=== PATIENT | female | born 1935 | race Caucasian/White ===

== ENCOUNTER 2017-01-27 16:15 | Inpatient (IN) | payer MEDICARE, OTHER ==
[~2017-01-27] VITALS: Ht 162.6 cm; Wt 111.7 kg
[2017-01-27 16:15] VITALS: BP 157/87
--- NOTE | 2017-01-27 16:59 | Emergency Room Report ---
History of Present Illness General Chief Complaint: Dyspnea/Respdistress Source: Patient Present Illness HPI This patient presents with shortness of breath for the past day and has. The patient does have a history of arrhythmia and congestive heart failure. The patient related to her care at [facility]. The patient states she did call her primary care physician number she was unable to get into the clinic today. She denies fever or chills. She denies cough or congestion. She denies chest pain. She denies abdominal pain. She denies dysuria or hematuria. She has no other complaints. Allergies: Coded Allergies: No Known Allergies (Verified , 04/05/10) UNABLE TO ASSESS (Unverified , 01/27/17) Patient History Past Medical History: see triage record, DM, HTN, IA, CAD, CHF, AFib, arrhyth, GERD Past Surgical History: pacemaker Social History: Denies: alcohol use, drug use, smoking Reviewed Nursing Documentation: PMH: Agreed, PSxH: Agreed Nursing Documentation-PMH Hx Hypertension: Yes Hx Diabetes: Yes Review of Systems All Other Systems: negative except mentioned in HPI Physical Exam Vital Signs Date Time Temp Pulse Resp B/P Pulse Ox O2 Delivery O2 Flow Rate FiO2 01/27/17 16:09 85 18 151/93 100 Nasal Cannula 3.0 Sp02 EP Interpretation: reviewed, normal General Appearance: no apparent distress, alert, GCS 15, non-toxic Head: normocephalic, atraumatic Eyes: bilateral eye PERRL, bilateral eye normal inspection ENT: hearing grossly normal, normal pharynx, no angioedema, normal voice Neck: full range of motion, supple/symm/no masses Respiratory: chest non-tender, lungs clear, normal breath sounds, speaking full sentences Cardiovascular #1: regular rate, rhythm, no edema Gastrointestinal: normal bowel sounds, non tender, soft, non-distended, no guarding, no rebound Rectal: deferred Musculoskeletal: back normal, gait/station normal, normal range of motion, non- tender, swelling - BLE Neurologic: alert, oriented x3, responsive, motor strength/tone normal, sensory intact, speech normal Psychiatric: judgement/insight normal, memory normal, mood/affect normal, no suicidal/homicidal ideation Skin: normal color, no rash, warm/dry, well hydrated Medical Decision Making Diagnostic Impression: Primary Impression: CHF exacerbation ER Course This patient presents with CHF exacerbation. She is a known history of CHF. Chest x-ray shows findings consistent with interstitial edema. The patient was given Lasix IV and nitro paste was placed on her chest wall. She did remain stable here in the emergency department on 2 L of nasal cannula. She was admitted for further evaluation and treatment. Labs Test 01/27/17 16:25 White Blood Count 5.6 K/UL (4.8-10.8) Red Blood Count 3.43 M/UL (4.20-5.40) Hemoglobin 10.5 G/DL (12.0-16.0) Hematocrit 34.2 % (37.0-47.0) Mean Corpuscular Volume 100 FL (80-99) Mean Corpuscular Hemoglobin 30.5 PG (27.0-31.0) Mean Corpuscular Hemoglobin Concent 30.6 G/DL (32.0-36.0) Red Cell Distribution Width 17.1 % (11.6-14.8) Platelet Count 199 K/UL (150-450) Mean Platelet Volume 10.1 FL (6.5-10.1) Neutrophils (%) (Auto) 70.6 % (45.0-75.0) Lymphocytes (%) (Auto) 20.0 % (20.0-45.0) Monocytes (%) (Auto) 6.6 % (1.0-10.0) Eosinophils (%) (Auto) 1.5 % (0.0-3.0) Basophils (%) (Auto) 1.3 % (0.0-2.0) Prothrombin Time 12.1 SEC (9.30-11.50) Prothromb Time International Ratio 1.2 (0.9-1.1) Activated Partial Thromboplast Time 43 SEC (23-33) Sodium Level 142 mEQ/L (135-145) Potassium Level 4.5 mEQ/L (3.4-4.9) Chloride Level 101 mEQ/L (98-107) Carbon Dioxide Level 29 mEQ/L (20-30) Anion Gap 12 (5-15) Blood Urea Nitrogen 28 mg/dL (7-23) Creatinine 1.5 mg/dL (0.5-0.9) Estimat Glomerular Filtration Rate mL/min (>60) Glucose Level 69 mg/dL (74-106) Calcium Level 9.8 mg/dL (8.6-10.2) Total Bilirubin 0.9 mg/dL (0.0-1.2) Aspartate Amino Transf (AST/SGOT) 16 U/L (5-40) Alanine Aminotransferase (ALT/SGPT) 7 U/L (3-33) Alkaline Phosphatase 96 U/L (35-104) Total Creatine Kinase 50 U/L (26-140) Creatine Kinase MB 1.8 ng/mL (< 3.8) Creatine Kinase MB Relative Index 3.6 Troponin I < 0.30 ng/mL (<=0.30) Pro-B-Type Natriuretic Peptide 4101 pg/mL (0-450) Total Protein 6.9 g/dL (6.6-8.7) Albumin 3.6 g/dL (3.5-5.2) Globulin 3.3 g/dL Albumin/Globulin Ratio 1.0 (1.0-2.7) EKG Diagnostic Results Rate: normal Rhythm: other ST Segments: no acute changes Other Impression a.fib Rhythm Strip Diag. Results EP Interpretation: yes Rate: 80's Rhythm: other Other Impression A.fib w/ some paced beats Chest X-Ray Diagnostic Results Chest X-Ray Ordered: Yes # of Views/Limited/Complete: 1 View Interpretation: no consolidation, no pneumothorax, other Indication: Shortness of Breath Impression: Other - Cardiomegaly, interstitial congestion. Date Electronically Signed: Jan 27, 2017 Time Electronically Signed: 16:59 Interpreting ER Physician: Amairani Last Vital Signs Date Time Temp Pulse Resp B/P Pulse Ox O2 Delivery O2 Flow Rate FiO2 01/27/17 16:15 85 18 Room Air 01/27/17 16:09 151/93 100 3.0 Disposition: ADMITTED INPATIENT Condition: Serious Referrals: NOT CHOSEN IPA/,REFERRING (PCP) LISA SWEENEY D.O. Jan 27, 2017 16:59
[2017-01-27] MEDS ORDERED: Nitroglycerin 2% oint pkt TOPIC ONE (17:00)
[2017-01-27 17:01] LABS: BASOPHILS % (AUTO) 1.3 % (0.0-2.0); EOSINOPHILS % (AUTO) 1.5 % (0.0-3.0); MEAN CORPUSCULAR HEMOGLOBIN 30.5 PG (27.0-31.0); MEAN CORPUSCULAR HGB CONC 30.6 G/DL (32.0-36.0); MEAN CORPUSCULAR VOLUME 100 FL (80-99); MEAN PLATELET VOLUME 10.1 FL (6.5-10.1); MONOCYTES % (AUTO) 6.6 % (1.0-10.0); NEUTROPHILS % (AUTO) 70.6 % (45.0-75.0); PLATELET COUNT 199 K/UL (150-450); RED BLOOD COUNT 3.43 M/UL (4.20-5.40); RED CELL DISTRIBUTION WIDTH 17.1 % (11.6-14.8); WHITE BLOOD COUNT 5.6 K/UL (4.8-10.8)
[2017-01-27 17:07] LABS: INR 1.2 (0.9-1.1); PROTHROMBIN TIME 12.1 SEC (9.30-11.50)
[2017-01-27 17:08] LABS: ALANINE AMINOTRANSFERASE 7 U/L (3-33); ANION GAP 12 (5-15); ASPARTATE AMINO TRANSFERASE 16 U/L (5-40); CALCIUM 9.8 mg/dL (8.6-10.2); CARBON DIOXIDE 29 mEQ/L (20-30); CHLORIDE 101 mEQ/L (98-107); CREATININE 1.5 mg/dL (0.5-0.9); HEMOLYSIS 12; POTASSIUM 4.5 mEQ/L (3.4-4.9); SODIUM 142 mEQ/L (135-145); TOTAL PROTEIN 6.9 g/dL (6.6-8.7); TROPONIN I < 0.30 ng/mL (<=0.30)
[2017-01-27 17:19] LABS: CKMB 1.8 ng/mL (< 3.8)
[2017-01-27] MEDS ORDERED: PRADAXA150 MG ORAL (17:19)
[2017-01-27] MEDS ORDERED: LANTUS SOL100 UNIT/1 SUBQ (17:19)
[2017-01-27] MEDS ORDERED: AMIODARONE HCL400 M1 ORAL (17:19)
[2017-01-27] MEDS ORDERED: ROCATROL0.25 MCG PO (17:19)
[2017-01-27] MEDS ORDERED: HYDRALAZINE HCL25 M1 ORAL (17:19)
[2017-01-27] MEDS ORDERED: NEXIUM40 MG ORAL (17:19)
[2017-01-27] MEDS ORDERED: VITAMIN D400 INTLU ORAL (17:19)
[2017-01-27] MEDS ORDERED: ALLOPURINOL300 M1 ORAL (17:19)
[2017-01-27] MEDS ORDERED: FUROSEMIDE40 MG ORAL (17:19)
[2017-01-27] MEDS ORDERED: NOVOLOG100 UNITS1 SQ ×3 (17:59)
[2017-01-27 18:00] VITALS: BP_SYST 157; BP_SYST 173; BP_DIAS 76; BP_DIAS 87
[2017-01-27 18:21] LABS: APPEARANCE,URINE CLEAR; KETONES,URINE NEGATIVE (NEGATIVE); LEUKOCYTE ESTERASE ,URINE 1+ (NEGATIVE); NITRITE,URINE NEGATIVE (NEGATIVE); PH,URINE 7 (4.5-8.0); PROTEIN,URINE NEGATIVE (NEGATIVE); UROBILINOGEN,URINE NORMAL MG/DL (0.0-1.0)
[2017-01-27 18:26] LABS: BACTERIA,URINE FEW /HPF; RBC,URINE 0-2 /HPF (0 - 2); SQUAMOUS EPITHELIAL CELL,UR FEW /LPF (NONE/OCC)
[2017-01-27] MEDS ORDERED: DuoNeb 0.5-3(2.5)mg/3ml neb HHN PRN (18:45)
[2017-01-27] MEDS ORDERED: Miralax 17gm pkt ORAL PRN (18:45)
[2017-01-27 20:06] VITALS: BP 141/84
[2017-01-27] MEDS: NovoLOG Insulin Flexpen SUBQ SCH (21:00)
[2017-01-27] MEDS ORDERED: Heparin 5000 units/ml inj SUBQ SCH (21:00)
[2017-01-27] MEDS: HydrALAZINE 25mg tab ORAL SCH (21:35)
[2017-01-27] MEDS: Amiodarone 200mg tab ORAL SCH (21:35)
[2017-01-27] MEDS: Famotidine 20 MG/ 2ML VIAL IVP SCH (21:49)
[2017-01-28] VITALS: BP 129/56
[2017-01-28 03:44] VITALS: BP 126/69
[2017-01-28] MEDS: NovoLOG Insulin Flexpen SUBQ SCH ×4 (06:04→21:08)
[2017-01-28 06:07] LABS: BASOPHILS % (AUTO) 1.5 % (0.0-2.0); EOSINOPHILS % (AUTO) 2.1 % (0.0-3.0); LYMPHOCYTES % (AUTO) 16.9 % (20.0-45.0); MEAN CORPUSCULAR HEMOGLOBIN 29.6 PG (27.0-31.0); MEAN CORPUSCULAR HGB CONC 30.1 G/DL (32.0-36.0); MEAN CORPUSCULAR VOLUME 98 FL (80-99); MEAN PLATELET VOLUME 9.9 FL (6.5-10.1); MONOCYTES % (AUTO) 9.5 % (1.0-10.0); PLATELET COUNT 192 K/UL (150-450); RED CELL DISTRIBUTION WIDTH 16.2 % (11.6-14.8); WHITE BLOOD COUNT 4.3 K/UL (4.8-10.8)
[2017-01-28 06:32] LABS: TROPONIN I < 0.30 ng/mL (<=0.30)
[2017-01-28 06:58] LABS: ANION GAP 15 (5-15); CALCIUM 9.2 mg/dL (8.6-10.2); CARBON DIOXIDE 24 mEQ/L (20-30); CHLORIDE 103 mEQ/L (98-107); CREATININE 1.5 mg/dL (0.5-0.9); HEMOLYSIS 55; PHOSPHORUS 3.7 mg/dL (2.5-4.8); POTASSIUM 4.2 mEQ/L (3.4-4.9); SODIUM 142 mEQ/L (135-145)
[2017-01-28 08:22] VITALS: BP 118/55
--- NOTE | 2017-01-28 08:39 | Diagnostic Imaging Report ---
Indication: SOB Technique: One view of the chest Comparison: none Findings: There is a left chest bifocal pacemaker. There are old healed right rib fracture deformities and underlying pleural thickening. The heart is enlarged. There is blunting of the right costophrenic sulcus. There is mild central interstitial prominence Impression: Cardiomegaly Mild central interstitial prominence. Suspect on the basis of chronic senescent changes, but could indicate mild interstitial congestion Cannot rule out small right pleural effusion Pacemaker
[2017-01-28] MEDS: HydrALAZINE 25mg tab ORAL SCH ×3 (09:16→21:03)
[2017-01-28] MEDS: Amiodarone 200mg tab ORAL SCH (09:17)
--- NOTE | 2017-01-28 10:34 | Diagnostic Imaging Report ---
Indications: DYSPNEA Technique: Portable AP chest Findings: Comparison: 01/27/2017 Inspiratory effort has improved. Size of the cardiac silhouette has apparently decreased. Focal opacities in right lung base have decreased. Mild bilateral interstitial prominence persists. Blunting of right costophrenic angle persists. No new abnormality identified. IMPRESSION: Apparent increase in heart size may be technically related and/or represent resolving heart failure. Some residual findings persist. Decrease in right lung base opacity most compatible with improving atelectasis. Underlying focal pneumonia still not excludable. Stable right pleural effusion
[2017-01-28] MEDS: Calcitriol 0.25mcg Cap ORAL SCH (10:45)
[2017-01-28 11:29] VITALS: BP 118/60
--- NOTE | 2017-01-28 13:16 | History and Physical ---
History of Present Illness General Date patient seen: Jan 28, 2017 Reason for Hospitalization: Dyspnea/Respdistress Present Illness HPI 81 year old female with hx of CHF, pacemaker, DM, wheelchair bound presented with shortness of breath for the past day and has orthopnea and can't lay down flat. She denies fever or chills. She denies cough or congestion. She denies chest pain. She denies abdominal pain. She denies dysuria or hematuria. Her cxr showed pulmonary edema and cardiomegaly and she is admitted to telemetry for further evaluation. . Allergies: Coded Allergies: No Known Allergies (Verified , 04/05/10) UNABLE TO ASSESS (Unverified , 01/27/17) Medication History Scheduled Allopurinol* (Allopurinol*), 300 MG ORAL DAILY, (Reported) Amiodarone Hcl* (Amiodarone Hcl*), 200 MG ORAL EVERY 12 HOURS, (Reported) Calcitriol (Calcitriol), 0.25 MCG PO DAILY, (Reported) Dabigatran Etexilate Mesylate* (Pradaxa*), 75 MG ORAL DAILY, (Reported) Esomeprazole Magnesium (Nexium), 40 MG ORAL DAILY, (Reported) Furosemide* (Lasix*), 40 MG ORAL TWICE A DAY, (Reported) Hydralazine Hcl* (Hydralazine Hcl*), 25 MG ORAL BID, (Reported) Insulin Aspart (Novolog Flexpen), 12 SQ ACBREAKFAST, (Reported) Insulin Aspart (Novolog Flexpen), 8 SQ BEFORE LUNCH, (Reported) Insulin Aspart (Novolog Flexpen), 12 SQ BEDTIME, (Reported) Insulin Glargine (Lantus), 18 SUBQ BEDTIME, (Reported) Vitamin D (Vitamin D3), 400 UNITS ORAL BID, (Reported) Patient History Healthcare decision maker Resuscitation status Full Code Advanced Directive on File Past Medical/Surgical History Past Medical/Surgical History: (1) Pacemaker (2) Cardiomyopathy (3) HTN (hypertension) (4) Diabetes mellitus (5) Wheelchair bound Review of Systems Constitutional: Reports: malaise Respiratory: Reports: shortness of breath Physical Exam General Appearance: WD/WN, no apparent distress Lines, tubes and drains: peripheral HEENT: normocephalic Neck: non-tender, supple Respiratory/Chest: chest wall non-tender, normal breath sounds Cardiovascular/Chest: normal peripheral pulses Abdomen: normal bowel sounds, non tender Extremities: normal range of motion, non-tender Last 24 Hour Vital Signs Date Time Temp Pulse Resp B/P Pulse Ox O2 Delivery O2 Flow Rate FiO2 01/28/17 12:00 88 01/28/17 11:29 97.0 73 18 118/60 99 Nasal Cannula 3.0 01/28/17 09:16 118/55 01/28/17 08:43 81 01/28/17 08:22 97.3 81 18 118/55 98 Nasal Cannula 3.0 01/28/17 07:40 107 18 Room Air 01/28/17 04:00 73 01/28/17 03:44 98.2 73 19 126/69 98 Nasal Cannula 3.0 01/28/17 00:00 72 01/28/17 00:00 97.8 79 19 129/56 99 Nasal Cannula 3.0 01/27/17 21:35 141/84 01/27/17 20:06 97.7 99 18 141/84 98 Nasal Cannula 01/27/17 19:30 79 22 173/76 100 Nasal Cannula 2.0 01/27/17 18:00 79 22 173/76 100 Nasal Cannula 2.0 01/27/17 17:15 151/63 01/27/17 16:15 84 20 157/87 95 Room Air 01/27/17 16:15 85 18 Room Air 01/27/17 16:09 85 18 151/93 100 Nasal Cannula 3.0 Intake and Output 01/27/17 01/28/17 19:00 07:00 Intake Total 0 ml Output Total 4250 ml Balance 0 ml -4250 ml Intake Oral 0 ml Output Urine Total 4250 ml Laboratory Tests Test 01/27/17 16:25 01/27/17 17:25 01/28/17 05:45 White Blood Count 5.6 K/UL (4.8-10.8) 4.3 K/UL (4.8-10.8) L Red Blood Count 3.43 M/UL (4.20-5.40) L 3.40 M/UL (4.20-5.40) L Hemoglobin 10.5 G/DL (12.0-16.0) L 10.1 G/DL (12.0-16.0) L Hematocrit 34.2 % (37.0-47.0) L 33.4 % (37.0-47.0) L Mean Corpuscular Volume 100 FL (80-99) H 98 FL (80-99) Mean Corpuscular Hemoglobin 30.5 PG (27.0-31.0) 29.6 PG (27.0-31.0) Mean Corpuscular Hemoglobin Concent 30.6 G/DL (32.0-36.0) L 30.1 G/DL (32.0-36.0) L Red Cell Distribution Width 17.1 % (11.6-14.8) H 16.2 % (11.6-14.8) H Platelet Count 199 K/UL (150-450) 192 K/UL (150-450) Mean Platelet Volume 10.1 FL (6.5-10.1) 9.9 FL (6.5-10.1) Neutrophils (%) (Auto) 70.6 % (45.0-75.0) 70.0 % (45.0-75.0) Lymphocytes (%) (Auto) 20.0 % (20.0-45.0) 16.9 % (20.0-45.0) L Monocytes (%) (Auto) 6.6 % (1.0-10.0) 9.5 % (1.0-10.0) Eosinophils (%) (Auto) 1.5 % (0.0-3.0) 2.1 % (0.0-3.0) Basophils (%) (Auto) 1.3 % (0.0-2.0) 1.5 % (0.0-2.0) Prothrombin Time 12.1 SEC (9.30-11.50) H Prothromb Time International Ratio 1.2 (0.9-1.1) H Activated Partial Thromboplast Time 43 SEC (23-33) H Sodium Level 142 mEQ/L (135-145) 142 mEQ/L (135-145) Potassium Level 4.5 mEQ/L (3.4-4.9) 4.2 mEQ/L (3.4-4.9) Chloride Level 101 mEQ/L (98-107) 103 mEQ/L (98-107) Carbon Dioxide Level 29 mEQ/L (20-30) 24 mEQ/L (20-30) Anion Gap 12 (5-15) 15 (5-15) Blood Urea Nitrogen 28 mg/dL (7-23) H 29 mg/dL (7-23) H Creatinine 1.5 mg/dL (0.5-0.9) H 1.5 mg/dL (0.5-0.9) H Estimat Glomerular Filtration Rate mL/min (>60) mL/min (>60) Glucose Level 69 mg/dL (74-106) L 94 mg/dL (74-106) Calcium Level 9.8 mg/dL (8.6-10.2) 9.2 mg/dL (8.6-10.2) Total Bilirubin 0.9 mg/dL (0.0-1.2) Aspartate Amino Transf (AST/SGOT) 16 U/L (5-40) Alanine Aminotransferase (ALT/SGPT) 7 U/L (3-33) Alkaline Phosphatase 96 U/L (35-104) Total Creatine Kinase 50 U/L (26-140) Creatine Kinase MB 1.8 ng/mL (< 3.8) Creatine Kinase MB Relative Index 3.6 Troponin I < 0.30 ng/mL (<=0.30) < 0.30 ng/mL (<=0.30) Pro-B-Type Natriuretic Peptide 4101 pg/mL (0-450) H Total Protein 6.9 g/dL (6.6-8.7) Albumin 3.6 g/dL (3.5-5.2) 2.8 g/dL (3.5-5.2) L Globulin 3.3 g/dL Albumin/Globulin Ratio 1.0 (1.0-2.7) Urine Color Pale yellow Urine Appearance Clear Urine pH 7 (4.5-8.0) Urine Specific [place] 1.005 (1.005-1.035) Urine Protein Negative (NEGATIVE) Urine Glucose (UA) Negative (NEGATIVE) Urine Ketones Negative (NEGATIVE) Urine Occult Blood Negative (NEGATIVE) Urine Nitrite Negative (NEGATIVE) Urine Bilirubin Negative (NEGATIVE) Urine Urobilinogen Normal MG/DL (0.0-1.0) Urine Leukocyte Esterase 1+ (NEGATIVE) H Urine RBC 0-2 /HPF (0 - 2) Urine WBC 2-4 /HPF (0 - 2) Urine Squamous Epithelial Cells Few /LPF (NONE/OCC) Urine Bacteria Few /HPF (NONE) Phosphorus Level 3.7 mg/dL (2.5-4.8) Height (Feet): 5 Height (Inches): 4.00 Weight (Pounds): 258 Medications Current Medications Medications (Trade) Dose Ordered Sig/Payal Route PRN Reason Start Time Stop Time Status Last Admin Dose Admin Acetaminophen (Tylenol) 650 mg Q4H PRN ORAL Fever 01/27/17 18:45 02/26/17 18:44 Albuterol/ Ipratropium (DuoNeb 0.5-3(2.5)mg/3ml) 3 ml EVERY 4 HOURS PRN HHN Shortness of Breath 01/27/17 18:45 02/01/17 18:44 Allopurinol (Allopurinol) 300 mg DAILY ORAL 01/28/17 09:00 02/27/17 08:59 01/28/17 09:16 Amiodarone HCl (Cordarone) 200 mg EVERY 12 HOURS ORAL 01/27/17 21:00 02/26/17 20:59 01/28/17 09:17 Calcitriol (Rocatrol) 0.25 mcg DAILY ORAL 01/28/17 09:00 02/27/17 08:59 01/28/17 10:45 Dabigatran (Pradaxa) 75 mg EVERY 12 HOURS ORAL 01/27/17 21:00 02/26/17 20:59 01/28/17 09:17 Dextrose (Dextrose 50%) STAT PRN IV Hypoglycemia 01/27/17 18:45 02/26/17 18:44 Famotidine (Pepcid I.v.) 20 mg QHS IVP 01/27/17 21:00 02/26/17 20:59 01/27/17 21:49 Furosemide (Lasix) 40 mg EVERY 8 HOURS IV 01/27/17 22:00 02/26/17 21:59 01/28/17 06:02 Hydralazine HCl (Apresoline) 25 mg Q12HR ORAL 01/27/17 21:00 02/26/17 20:59 01/28/17 09:16 Insulin Aspart (NovoLOG) BEFORE MEALS AND HS SUBQ 01/27/17 21:00 02/26/17 20:59 01/28/17 11:36 Ondansetron HCl (Zofran) 4 mg Q6H PRN IVP Nausea & Vomiting 01/27/17 18:45 02/26/17 18:44 Polyethylene Glycol (Miralax) 17 gm DAILYPRN PRN ORAL Constipation 01/27/17 18:45 02/26/17 18:44 Temazepam (Restoril) 15 mg HSPRN PRN ORAL Insomnia 01/27/17 18:45 02/03/17 18:44 Assessment/Plan Problem List: (1) Acute respiratory failure ICD Codes: J96.00 - Acute respiratory failure, unspecified whether with hypoxia or hypercapnia SNOMED: 41974649 (2) Acute on chronic systolic (congestive) heart failure ICD Codes: I50.23 - Acute on chronic systolic (congestive) heart failure SNOMED: 53925414, 173457732 (3) Pacemaker ICD Codes: Z95.0 - Presence of cardiac pacemaker SNOMED: 171180182, 044686787 (4) HTN (hypertension) ICD Codes: I10 - Essential (primary) hypertension SNOMED: 97404057 (5) Cardiomyopathy ICD Codes: I42.9 - Cardiomyopathy, unspecified SNOMED: 35272987 (6) Diabetes mellitus ICD Codes: E11.9 - Type 2 diabetes mellitus without complications SNOMED: 20158862 (7) Wheelchair bound ICD Codes: Z99.3 - Dependence on wheelchair SNOMED: 379313504, 305463256 Assessment/Plan diuretics echo measure intake and output check electrolytes, BNP sliding scale, diabetic diet dvt prophylaxis pt/ot CHIAN GREENE Jan 28, 2017 13:16
[2017-01-28 13:45] LABS: BASOPHILS % (AUTO) 1.2 % (0.0-2.0); EOSINOPHILS % (AUTO) 1.8 % (0.0-3.0); LYMPHOCYTES % (AUTO) 17.9 % (20.0-45.0); MEAN CORPUSCULAR HEMOGLOBIN 29.2 PG (27.0-31.0); MEAN CORPUSCULAR HGB CONC 29.8 G/DL (32.0-36.0); MEAN CORPUSCULAR VOLUME 98 FL (80-99); MEAN PLATELET VOLUME 11.2 FL (6.5-10.1); MONOCYTES % (AUTO) 7.8 % (1.0-10.0); NEUTROPHILS % (AUTO) 71.3 % (45.0-75.0); PLATELET COUNT 212 K/UL (150-450); RED BLOOD COUNT 3.46 M/UL (4.20-5.40); RED CELL DISTRIBUTION WIDTH 16.7 % (11.6-14.8); WHITE BLOOD COUNT 4.9 K/UL (4.8-10.8)
[2017-01-28 15:38] VITALS: BP 123/71
--- NOTE | 2017-01-28 15:54 | Cardiology Progress Note ---
Assessment/Plan Assessment/Plan chf acute on chronci systolic icm cad remote pci htn cri nonoclusive dvt poplteal vein mr tr p htn hs of ppi obesity anticoagualtion with heparin to coaumdin prodaxa may have been underdosed need echo dirutic hydralazien adn nitrates diuretic bid switch ot po soon [id number] Objective Last 24 Hour Vital Signs Date Time Temp Pulse Resp B/P Pulse Ox O2 Delivery O2 Flow Rate FiO2 01/28/17 15:38 97.9 73 20 123/71 99 Nasal Cannula 3.0 01/28/17 12:00 88 01/28/17 11:29 97.0 73 18 118/60 99 Nasal Cannula 3.0 01/28/17 09:16 118/55 01/28/17 08:43 81 01/28/17 08:22 97.3 81 18 118/55 98 Nasal Cannula 3.0 01/28/17 07:40 107 18 Room Air 01/28/17 04:00 73 01/28/17 03:44 98.2 73 19 126/69 98 Nasal Cannula 3.0 01/28/17 00:00 72 01/28/17 00:00 97.8 79 19 129/56 99 Nasal Cannula 3.0 01/27/17 21:35 141/84 01/27/17 20:06 97.7 99 18 141/84 98 Nasal Cannula 01/27/17 19:30 79 22 173/76 100 Nasal Cannula 2.0 01/27/17 18:00 79 22 173/76 100 Nasal Cannula 2.0 01/27/17 17:15 151/63 01/27/17 16:15 84 20 157/87 95 Room Air 01/27/17 16:15 85 18 Room Air 01/27/17 16:09 85 18 151/93 100 Nasal Cannula 3.0 Intake and Output 01/27/17 01/28/17 19:00 07:00 Intake Total 0 ml Output Total 4250 ml Balance 0 ml -4250 ml Intake Oral 0 ml Output Urine Total 4250 ml Laboratory Tests Test 01/27/17 16:25 01/27/17 17:25 01/28/17 05:45 01/28/17 13:35 White Blood Count 5.6 K/UL (4.8-10.8) 4.3 K/UL (4.8-10.8) L 4.9 K/UL (4.8-10.8) Red Blood Count 3.43 M/UL (4.20-5.40) L 3.40 M/UL (4.20-5.40) L 3.46 M/UL (4.20-5.40) L Hemoglobin 10.5 G/DL (12.0-16.0) L 10.1 G/DL (12.0-16.0) L 10.1 G/DL (12.0-16.0) L Hematocrit 34.2 % (37.0-47.0) L 33.4 % (37.0-47.0) L 33.9 % (37.0-47.0) L Mean Corpuscular Volume 100 FL (80-99) H 98 FL (80-99) 98 FL (80-99) Mean Corpuscular Hemoglobin 30.5 PG (27.0-31.0) 29.6 PG (27.0-31.0) 29.2 PG (27.0-31.0) Mean Corpuscular Hemoglobin Concent 30.6 G/DL (32.0-36.0) L 30.1 G/DL (32.0-36.0) L 29.8 G/DL (32.0-36.0) L Red Cell Distribution Width 17.1 % (11.6-14.8) H 16.2 % (11.6-14.8) H 16.7 % (11.6-14.8) H Platelet Count 199 K/UL (150-450) 192 K/UL (150-450) 212 K/UL (150-450) Mean Platelet Volume 10.1 FL (6.5-10.1) 9.9 FL (6.5-10.1) 11.2 FL (6.5-10.1) H Neutrophils (%) (Auto) 70.6 % (45.0-75.0) 70.0 % (45.0-75.0) 71.3 % (45.0-75.0) Lymphocytes (%) (Auto) 20.0 % (20.0-45.0) 16.9 % (20.0-45.0) L 17.9 % (20.0-45.0) L Monocytes (%) (Auto) 6.6 % (1.0-10.0) 9.5 % (1.0-10.0) 7.8 % (1.0-10.0) Eosinophils (%) (Auto) 1.5 % (0.0-3.0) 2.1 % (0.0-3.0) 1.8 % (0.0-3.0) Basophils (%) (Auto) 1.3 % (0.0-2.0) 1.5 % (0.0-2.0) 1.2 % (0.0-2.0) Prothrombin Time 12.1 SEC (9.30-11.50) H Prothromb Time International Ratio 1.2 (0.9-1.1) H Activated Partial Thromboplast Time 43 SEC (23-33) H 49 SEC (23-33) H Sodium Level 142 mEQ/L (135-145) 142 mEQ/L (135-145) Potassium Level 4.5 mEQ/L (3.4-4.9) 4.2 mEQ/L (3.4-4.9) Chloride Level 101 mEQ/L (98-107) 103 mEQ/L (98-107) Carbon Dioxide Level 29 mEQ/L (20-30) 24 mEQ/L (20-30) Anion Gap 12 (5-15) 15 (5-15) Blood Urea Nitrogen 28 mg/dL (7-23) H 29 mg/dL (7-23) H Creatinine 1.5 mg/dL (0.5-0.9) H 1.5 mg/dL (0.5-0.9) H Estimat Glomerular Filtration Rate mL/min (>60) mL/min (>60) Glucose Level 69 mg/dL (74-106) L 94 mg/dL (74-106) Calcium Level 9.8 mg/dL (8.6-10.2) 9.2 mg/dL (8.6-10.2) Total Bilirubin 0.9 mg/dL (0.0-1.2) Aspartate Amino Transf (AST/SGOT) 16 U/L (5-40) Alanine Aminotransferase (ALT/SGPT) 7 U/L (3-33) Alkaline Phosphatase 96 U/L (35-104) Total Creatine Kinase 50 U/L (26-140) Creatine Kinase MB 1.8 ng/mL (< 3.8) Creatine Kinase MB Relative Index 3.6 Troponin I < 0.30 ng/mL (<=0.30) < 0.30 ng/mL (<=0.30) Pro-B-Type Natriuretic Peptide 4101 pg/mL (0-450) H Total Protein 6.9 g/dL (6.6-8.7) Albumin 3.6 g/dL (3.5-5.2) 2.8 g/dL (3.5-5.2) L Globulin 3.3 g/dL Albumin/Globulin Ratio 1.0 (1.0-2.7) Urine Color Pale yellow Urine Appearance Clear Urine pH 7 (4.5-8.0) Urine Specific [place] 1.005 (1.005-1.035) Urine Protein Negative (NEGATIVE) Urine Glucose (UA) Negative (NEGATIVE) Urine Ketones Negative (NEGATIVE) Urine Occult Blood Negative (NEGATIVE) Urine Nitrite Negative (NEGATIVE) Urine Bilirubin Negative (NEGATIVE) Urine Urobilinogen Normal MG/DL (0.0-1.0) Urine Leukocyte Esterase 1+ (NEGATIVE) H Urine RBC 0-2 /HPF (0 - 2) Urine WBC 2-4 /HPF (0 - 2) Urine Squamous Epithelial Cells Few /LPF (NONE/OCC) Urine Bacteria Few /HPF (NONE) Phosphorus Level 3.7 mg/dL (2.5-4.8) PEDRO COOPER Jan 28, 2017 15:54
[2017-01-28] MEDS: Docusate 100mg cap ORAL SCH (17:55)
[2017-01-28] MEDS: Lactulose 20gm/30ml UDC ORAL SCH (17:55)
--- NOTE | 2017-01-28 17:57 | Cardiology Report ---
APPROVED REPORT EXAM: Two-dimensional and M-mode echocardiogram with Doppler and color Doppler. INDICATION Left Ventricular Function M-Mode DIMENSIONS IVSd1.6 (0.7-1.1cm)Left Atrium (MM)5.2 (1.6-4.0cm) LVDd5.3 (3.5-5.6cm)Aortic Root3.2 (2.0-3.7cm) PWd1.1 (0.7-1.1cm)Aortic Cusp Exc.2.0 (1.5-2.0cm) LVDs3.8 (2.5-4.0cm) PWs1.7 cm Normal left ventricular chamber size. HYPOKINETIC DISTAL SEPTUM MAYBE RELATED TO PACING Asynchronous septal motion. Left ventricular ejection fraction estimated to be 45-50 %. Mild left ventricular hypertrophy. No evidence of pericardial fat or effusion. Mild right ventricular enlargement by. Moderate right atrial enlargement. Severe left atrial enlargement by 2-D. Mild focal aortic valve sclerosis with adequate cusp excursion. Mildly thickened mitral valve leaflets with normal excursion. Mild mitral annulus and aortic root calcification. Pulmonic valve not well visualized. Normal tricuspid valve structure. IVC dilated at 2.1 cm with physiologic collapse. A color flow and spectral Doppler study was performed and revealed: No aortic regurgitation. Mild mitral regurgitation. Left ventricular diastolic function could not be determined due to A-Fib. Mild to moderate tricuspid regurgitation. Tricuspid systolic velocities suggests peak right ventricular systolic pressure of 51 mmHg, consistent with moderate pulmonary hypertension. No pulmonic regurgitation present.
[2017-01-28 20:00] VITALS: BP 113/60
[2017-01-28] MEDS ORDERED: Heparin 25,000u/D5W 500ml 500 ML IV SCH (21:00)
[2017-01-28] MEDS: Miralax 17gm pkt ORAL SCH (21:00)
[2017-01-28] MEDS: Famotidine 20 MG/ 2ML VIAL IVP SCH (21:08)
--- NOTE | 2017-01-28 21:14 | Wound Care Consultation ---
Wound Assessment Wound Assessment : Wound Present on Admission: Yes New Wound: No Status Change of Wound: No Wound Location Body Site Modif: mid Wound Location Body Site: other - sacrococcyxgeal Wound Type: pressure ulcer Joel Test: Does not Joel Wound Thickness: Full Thickness - scar tissue Wound Length: 3.0 Wound Width: 0.3 Wound Depth: utd Percent of Wound [place]/Red: 100 Wound Drainage Amount: None Wound Drainage Odor: None/Absent Tissue Surrounding Wound: Intact Wound General Appearance: Asymptomatic Wound Comment #1 Sacrococcygeal full thickness scar tissue Recommendation -Turn and reposition -Keep clean and dry -Optimize nutrition -Heel protector on both heels -Offload both heels -Assess and f/u accordingly for any changes FEDERICA DENNIS RN Jan 28, 2017 21:14
[2017-01-29] VITALS: BP 122/53
--- NOTE | 2017-01-29 | Consultation ---
DATE OF CONSULTATION: 01/28/2017 CARDIOLOGY CONSULTATION REFERRING PHYSICIAN: Leslee Geiger M.D. REASON FOR EVALUATION: Shortness of breath. HISTORY OF PRESENT ILLNESS: This 81-year-old female, who has a history of medical problems . The patient presented to the hospital approximately two to three days of not being able to sleep at night at all because of shortness of breath. She uses several pillows at night and in the past few nights has not been able to sleep. She is not very active. She just gets up and sits up in a wheelchair, step into the bathroom and come back to bed again. So, activity is very nonstrenuous. She does not have any pain, pressure, tightness or heaviness in her chest. There is no palpitations recently and she has had some shortness of breath. There is no dizziness or lightheadedness on standing. PAST MEDICAL HISTORY: Extensive as follows at [facility]. I had a chance to review some of the [facility] records. She has a history of chronic congestive heart failure and diastolic heart failure, previously on Lasix 40 mg twice a day. He has been status post PCI to the LAD diagonal in June 2006 and sick sinus syndrome status post permanent pacemaker implantation, history of atrial fibrillation on Pradaxa, and hypertension. She is acute on chronic kidney disease, stage 3 or 4, and hypernatremia. She has had a history of umbilical hernia, anticoagulation-induced hematuria, urinary tract infection, diabetes mellitus, abdominal pain, and colonic mass as well. ALLERGIES: She has no known drug allergies. REVIEW OF SYSTEMS: Gastrointestinal: Negative. Genitourinary: Negative. Constitutional: Negative. Neurologic: Negative. Cardiopulmonary: As mentioned in history of present illness. PHYSICAL EXAMINATION: GENERAL: The patient is a morbidly obese elderly female, in no respiratory distress. She is feels already comfortable. There is no jugular venous distention. No abdominojugular reflux noted. LUNGS: Clear to auscultation and percussion. CARDIAC: S1 is normal. S2 is normal. Regular rate and rhythm. No heaves, thrills, gallops, or rubs noted. Holosystolic grade 2 murmur was noted. ABDOMEN: Soft and nontender. Positive bowel sounds. EXTREMITIES: There is no clubbing, cyanosis, or edema. LABORATORY AND DIAGNOSTIC DATA: White count 4.9, hemoglobin 10.1, and platelet count of 212,000. Sodium is 142, potassium 4.3, chloride 103, bicarbonate 24, BUN of 29 and creatinine 1.5. Her creatinine at the time of admission was 1.5. Three sets of cardiac enzymes are negative. Pro-BNP is 4011. Albumin is 2.8. INR is 1.2 and PTT of 43. is 49 today. Urinalysis is 1+ leukocyte esterase and 2-4 WBCs. Chest x-ray shows heart failure resolving, decreased, but opacity compatible with improving atelectasis, underlying pneumonia not excluded. Right pleural effusion stable. Duplex study shows that nonoccluded thrombus in the popliteal vein. Blood pressure is anywhere between 118/55 to 123/71, heart rates in the 70 to 80 and temperature is 97.3 degrees. EKG shows a atrial fibrillation, ventricular response is controlled. No is noted on this EKG. ASSESSMENT AND PLAN: 1. Congestive heart failure, acute on chronic. 2. History of permanent atrial fibrillation. 3. Sick sinus syndrome, status post permanent pacemaker implantation. 4. Coronary disease with prior history of a stent in 2005 and myocardial infarction in 2004. 5. History of left ventricular systolic dysfunction, ejection fraction 45% previously. 6. Mitral regurgitation and tricuspid regurgitation on prior occasions. 7. Pulmonary hypertension on prior occasions as well. 8. Dilated RV on prior occasions as well. 9. Nonocclusive deep venous thromboses. Dr. Geiger, this patient was seen in cardiac consultation. The patient has significant improvement in her symptoms already. She should be back on all her medications, however, she has indicated that she has been taking amiodarone twice a day, which she probably should not have been, I am not clear how long she has been on it. She has been on Pradaxa 75 mg once a day, this probably is not therapeutic for her degree of dysfunction. Her Lasix was supposed to be on 40 mg twice a day, but she is only taking it once a day. She is on hydralazine as well as she was supposed to be on Imdur, which she apparently has not taken at this time. Her ejection fraction previously was already at 45%. She has some valvular dysfunction that are contributing to her congestive heart failure that she is at the present time. Not clear to me whether she is going to be inadequate or a good candidate for chronic anticoagulation with Coumadin, although I suspect with the degree of thrombus that is present, Pradaxa may be not the best option in light of renal insufficiency fluctuating renal function at this time and should be considered for anticoagulation with heparin cross over. Patrick Brandt M.D. DR: SALOME JOB#: [id number] CC:
[2017-01-29 03:54] LABS: TROPONIN I < 0.30 ng/mL (<=0.30)
[2017-01-29 04:00] VITALS: BP 119/60
[2017-01-29] MEDS ORDERED: Heparin 25,000u/D5W 500ml 500 ML IV SCH ×4 (05:00→20:00)
[2017-01-29] MEDS ORDERED: Norco 5mg/325mg tab ORAL PRN (05:45)
[2017-01-29] MEDS: NovoLOG Insulin Flexpen SUBQ SCH ×4 (05:56→21:15)
[2017-01-29 07:54] VITALS: BP 127/52
[2017-01-29] MEDS: Lactulose 20gm/30ml UDC ORAL SCH ×3 (09:00→17:30)
[2017-01-29] MEDS: Docusate 100mg cap ORAL SCH ×3 (09:00→17:30)
[2017-01-29] MEDS: Amiodarone 200mg tab ORAL SCH (09:45)
[2017-01-29] MEDS: HydrALAZINE 25mg tab ORAL SCH ×2 (09:46→20:52)
[2017-01-29] MEDS: Calcitriol 0.25mcg Cap ORAL SCH (09:46)
[2017-01-29 11:31] VITALS: BP 120/57
--- NOTE | 2017-01-29 12:24 | Pulmonology Progress Note ---
Assessment/Plan Problems: (1) Acute respiratory failure (2) Acute on chronic systolic (congestive) heart failure (3) Pacemaker (4) HTN (hypertension) (5) Cardiomyopathy (6) Diabetes mellitus (7) Wheelchair bound (8) DVT (deep venous thrombosis) Assessment/Plan improving continue diuretics on heparin drip for dvt ( might switch to pradaxa upon discharge home) check electrolytes and bnp in am dc probably in am Subjective Interval Events: doing better, on heparin drip Allergies: Coded Allergies: No Known Allergies (Verified , 04/05/10) Objective Last 24 Hour Vital Signs Date Time Temp Pulse Resp B/P Pulse Ox O2 Delivery O2 Flow Rate FiO2 01/29/17 11:31 96.9 75 18 120/57 99 Nasal Cannula 3.0 01/29/17 09:47 127/52 01/29/17 09:46 127/52 01/29/17 08:00 71 01/29/17 07:54 96.8 77 18 127/52 98 Nasal Cannula 3.0 01/29/17 07:13 70 16 Nasal Cannula 3.0 32 01/29/17 07:13 98 Nasal Cannula 3.0 32 01/29/17 07:13 Nasal Cannula 3.0 32 01/29/17 04:00 97.7 77 20 119/60 99 Nasal Cannula 2.0 01/29/17 04:00 70 01/29/17 00:00 98.2 73 20 122/53 98 Nasal Cannula 01/29/17 00:00 74 01/29/17 00:00 98.2 73 20 122/53 99 Nasal Cannula 2.0 01/28/17 21:00 113/60 01/28/17 20:00 97.2 78 20 113/60 98 Room Air 01/28/17 20:00 81 01/28/17 19:30 82 18 Room Air 21 01/28/17 17:55 123/71 01/28/17 16:36 76 01/28/17 15:38 97.9 73 20 123/71 99 Nasal Cannula 3.0 Intake and Output 01/28/17 01/29/17 19:00 07:00 Intake Total 360 ml 252.90 ml Output Total 2300 ml 1100 ml Balance -1940 ml -847.10 ml Intake Oral 360 ml IV Total 252.90 ml Output Urine Total 2300 ml 1100 ml # Bowel Movements 1 General Appearance: WD/WN HEENT: normocephalic, atraumatic Respiratory/Chest: chest wall non-tender, lungs clear Breasts: no masses Cardiovascular: normal peripheral pulses, normal rate Abdomen: normal bowel sounds, soft, non tender Genitourinary: normal external genitalia 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, no motor/sensory deficits Lymphatic: no neck adenopathy, no groin adenopathy Laboratory Tests 01/28/17 13:35: White Blood Count 4.9, Red Blood Count 3.46L, Hemoglobin 10.1L, Hematocrit 33.9L , Mean Corpuscular Volume 98, Mean Corpuscular Hemoglobin 29.2, Mean Corpuscular Hemoglobin Concent 29.8L, Red Cell Distribution Width 16.7H, Platelet Count 212, Mean Platelet Volume 11.2H, Neutrophils (%) (Auto) 71.3, Lymphocytes (%) (Auto) 17.9L, Monocytes (%) (Auto) 7.8, Eosinophils (%) (Auto) 1.8, Basophils (%) (Auto) 1.2, Activated Partial Thromboplast Time 49H 01/29/17 02:50: Activated Partial Thromboplast Time > 150*H, Troponin I < 0.30, Thyroid Stimulating Hormone (TSH) 25.020H 01/29/17 10:50: Activated Partial Thromboplast Time 106H Current Medications Medications (Trade) Dose Ordered Sig/Payal Route PRN Reason Start Time Stop Time Status Last Admin Dose Admin Acetaminophen (Tylenol) 650 mg Q4H PRN ORAL Mild Pain/Temp > 100.5 01/29/17 02:45 02/28/17 02:44 01/29/17 02:27 Acetaminophen/ Hydrocodone Bitart 1 tab 1 tab Q4H PRN ORAL Moderate Pain (Pain Scale 4-6) 01/29/17 05:45 02/05/17 05:44 Albuterol/ Ipratropium (DuoNeb 0.5-3(2.5)mg/3ml) 3 ml EVERY 4 HOURS PRN HHN Shortness of Breath 01/27/17 18:45 02/01/17 18:44 Allopurinol (Allopurinol) 300 mg DAILY ORAL 01/28/17 09:00 02/27/17 08:59 01/29/17 09:44 Amiodarone HCl (Cordarone) 200 mg DAILY ORAL 01/29/17 09:00 02/28/17 08:59 01/29/17 09:45 Calcitriol (Rocatrol) 0.25 mcg DAILY ORAL 01/28/17 09:00 02/27/17 08:59 01/29/17 09:46 Dextrose (Dextrose 50%) STAT PRN IV Hypoglycemia 01/27/17 18:45 02/26/17 18:44 Docusate Sodium (Colace) 100 mg THREE TIMES A DAY ORAL 01/28/17 18:00 02/27/17 17:59 01/28/17 17:55 Famotidine (Pepcid I.v.) 20 mg QHS IVP 01/27/17 21:00 02/26/17 20:59 01/28/17 21:08 Furosemide (Lasix) 40 mg EVERY 8 HOURS IV 01/27/17 22:00 02/26/17 21:59 01/29/17 05:47 Heparin Sodium/ Dextrose (Heparin) 500 ml @ 24.349 mls/ hr adjust per protocol IV 01/29/17 12:20 02/28/17 12:19 Hydralazine HCl (Apresoline) 25 mg Q12HR ORAL 01/27/17 21:00 02/26/17 20:59 01/29/17 09:46 Insulin Aspart (NovoLOG) BEFORE MEALS AND HS SUBQ 01/27/17 21:00 02/26/17 20:59 01/29/17 11:37 Isosorbide Dinitrate (Isordil) 10 mg TID ORAL 01/28/17 18:00 02/27/17 17:59 01/29/17 09:47 Lactulose (Cephulac) 30 gm THREE TIMES A DAY ORAL 01/28/17 18:00 02/27/17 17:59 01/28/17 17:55 Mineral Oil (Fleet's Mineral Oil Enema) 133 ml EVERY OTHER DAY RECTAL 01/30/17 09:00 03/01/17 08:59 Ondansetron HCl (Zofran) 4 mg Q6H PRN IVP Nausea & Vomiting 01/27/17 18:45 02/26/17 18:44 Polyethylene Glycol (Miralax) 17 gm BEDTIME ORAL 01/28/17 21:00 02/27/17 20:59 Polyethylene Glycol (Miralax) 17 gm DAILYPRN PRN ORAL Constipation 01/27/17 18:45 02/26/17 18:44 Sennosides (Senokot) 8.6 mg DAILY ORAL 01/28/17 14:00 02/27/17 13:59 01/28/17 13:49 Temazepam (Restoril) 15 mg HSPRN PRN ORAL Insomnia 01/27/17 18:45 02/03/17 18:44 [place] GREENE Jan 29, 2017 12:24
[2017-01-29 16:08] VITALS: BP 107/49
--- NOTE | 2017-01-29 19:00 | Cardiology Progress Note ---
Assessment/Plan Assessment/Plan 1. Congestive heart failure, acute on chronic. 2. History of permanent atrial fibrillation. 3. Sick sinus syndrome, status post permanent pacemaker implantation. 4. Coronary disease with prior history of a stent in 2005 and myocardial infarction in 2004. 5. History of left ventricular systolic dysfunction, ejection fraction 45% previously. 6. Mitral regurgitation and tricuspid regurgitation on prior occasions. 7. Pulmonary hypertension on prior occasions as well. 8. Dilated RV on prior occasions as well. 9. Nonocclusive deep venous thromboses. anticoagulation with heparin nto lead to any bleeding family indicate she has previously had problem with coumadin prodaxa may have been underdosed will dc pradaxa will switch to eliquis echo noted diuretic hydralazine adn nitrates diuretic bid switch ot po tomorrow dc amaro before she has traumatic hematuria Subjective Cardiovascular: Denies: chest pain, irregular heart rate, lightheadedness, palpitations Respiratory: Denies: shortness of breath Genitourinary: Denies: burning, hematuria Objective Last 24 Hour Vital Signs Date Time Temp Pulse Resp B/P Pulse Ox O2 Delivery O2 Flow Rate FiO2 01/29/17 17:30 107/49 01/29/17 16:08 96.8 76 18 107/49 100 Nasal Cannula 3.0 01/29/17 16:00 79 01/29/17 13:36 120/57 01/29/17 12:00 71 01/29/17 11:31 96.9 75 18 120/57 99 Nasal Cannula 3.0 01/29/17 09:47 127/52 01/29/17 09:46 127/52 01/29/17 08:00 71 01/29/17 07:54 96.8 77 18 127/52 98 Nasal Cannula 3.0 01/29/17 07:13 70 16 Nasal Cannula 3.0 32 01/29/17 07:13 98 Nasal Cannula 3.0 32 01/29/17 07:13 Nasal Cannula 3.0 32 01/29/17 04:00 97.7 77 20 119/60 99 Nasal Cannula 2.0 01/29/17 04:00 70 01/29/17 00:00 98.2 73 20 122/53 98 Nasal Cannula 01/29/17 00:00 74 01/29/17 00:00 98.2 73 20 122/53 99 Nasal Cannula 2.0 01/28/17 21:00 113/60 01/28/17 20:00 97.2 78 20 113/60 98 Room Air 01/28/17 20:00 81 01/28/17 19:30 82 18 Room Air 21 General Appearance: no apparent distress, alert Neck: supple Cardiovascular: normal rate, regular rhythm Respiratory/Chest: lungs clear, normal breath sounds Abdomen: normal bowel sounds, non tender, soft Extremities: no swelling Intake and Output 01/28/17 01/29/17 19:00 07:00 Intake Total 360 ml 252.90 ml Output Total 2300 ml 1100 ml Balance -1940 ml -847.10 ml Intake Oral 360 ml IV Total 252.90 ml Output Urine Total 2300 ml 1100 ml # Bowel Movements 1 Laboratory Tests Test 01/29/17 02:50 01/29/17 10:50 01/29/17 18:34 Activated Partial Thromboplast Time > 150 SEC (23-33) *H 106 SEC (23-33) H Pending Troponin I < 0.30 ng/mL (<=0.30) Thyroid Stimulating Hormone (TSH) 25.020 uIU/mL (0.300-4.500) Free Thyroxine Pending Free Triiodothyronine Pending PEDRO COOPER 14, 2017 19:00
--- NOTE | 2017-01-29 19:06 | Cardiology Progress Note ---
Assessment/Plan Assessment/Plan 1. Congestive heart failure, acute on chronic. 2. History of permanent atrial fibrillation. 3. Sick sinus syndrome, status post permanent pacemaker implantation. 4. Coronary disease with prior history of a stent in 2005 and myocardial infarction in 2004. 5. History of left ventricular systolic dysfunction, ejection fraction 45% previously. 6. Mitral regurgitation and tricuspid regurgitation on prior occasions. 7. Pulmonary hypertension on prior occasions as well. 8. Dilated RV on prior occasions as well. 9. Nonocclusive deep venous thromboses. anticoagulation with heparin nto lead to any bleeding family indicate she has previously had problem with coumadin prodaxa may have been underdosed will dc pradaxa will switch to eliquis full dose for dvt treatmnet not just afib (10 mg bid for 7 day then 5 mg bid ) dc heparin as of tomorrow at 3 am to start eliquis at 9 echo noted diuretic hydralazine adn nitrates diuretic bid switch ot po tomorrow dc amaro before she has traumatic hematuria Objective Last 24 Hour Vital Signs Date Time Temp Pulse Resp B/P Pulse Ox O2 Delivery O2 Flow Rate FiO2 01/29/17 17:30 107/49 01/29/17 16:08 96.8 76 18 107/49 100 Nasal Cannula 3.0 01/29/17 16:00 79 01/29/17 13:36 120/57 01/29/17 12:00 71 01/29/17 11:31 96.9 75 18 120/57 99 Nasal Cannula 3.0 01/29/17 09:47 127/52 01/29/17 09:46 127/52 01/29/17 08:00 71 01/29/17 07:54 96.8 77 18 127/52 98 Nasal Cannula 3.0 01/29/17 07:13 70 16 Nasal Cannula 3.0 32 01/29/17 07:13 98 Nasal Cannula 3.0 32 01/29/17 07:13 Nasal Cannula 3.0 32 01/29/17 04:00 97.7 77 20 119/60 99 Nasal Cannula 2.0 01/29/17 04:00 70 01/29/17 00:00 98.2 73 20 122/53 98 Nasal Cannula 01/29/17 00:00 74 01/29/17 00:00 98.2 73 20 122/53 99 Nasal Cannula 2.0 01/28/17 21:00 113/60 01/28/17 20:00 97.2 78 20 113/60 98 Room Air 01/28/17 20:00 81 01/28/17 19:30 82 18 Room Air 21 Intake and Output 01/28/17 01/29/17 19:00 07:00 Intake Total 360 ml 252.90 ml Output Total 2300 ml 1100 ml Balance -1940 ml -847.10 ml Intake Oral 360 ml IV Total 252.90 ml Output Urine Total 2300 ml 1100 ml # Bowel Movements 1 Laboratory Tests Test 01/29/17 02:50 01/29/17 10:50 01/29/17 18:34 Activated Partial Thromboplast Time > 150 SEC (23-33) *H 106 SEC (23-33) H Pending Troponin I < 0.30 ng/mL (<=0.30) Thyroid Stimulating Hormone (TSH) 25.020 uIU/mL (0.300-4.500) Free Thyroxine Pending Free Triiodothyronine Pending PEDRO COOPER Jan 29, 2017 19:06
[2017-01-29 20:00] VITALS: BP 99/58
[2017-01-29] MEDS: Miralax 17gm pkt ORAL SCH (20:55)
[2017-01-29] MEDS: Furosemide 40mg tab ORAL SCH (21:05)
[2017-01-29] MEDS: Famotidine 20 MG/ 2ML VIAL IVP SCH (21:07)
[2017-01-30 04:00] VITALS: BP 123/60
[2017-01-30] MEDS: NovoLOG Insulin Flexpen SUBQ SCH ×4 (05:56→20:49)
[2017-01-30 08:02] LABS: BASOPHILS % (AUTO) 1.5 % (0.0-2.0); EOSINOPHILS % (AUTO) 2.7 % (0.0-3.0); LYMPHOCYTES % (AUTO) 24.1 % (20.0-45.0); MEAN CORPUSCULAR HEMOGLOBIN 30.7 PG (27.0-31.0); MEAN CORPUSCULAR HGB CONC 31.5 G/DL (32.0-36.0); MEAN CORPUSCULAR VOLUME 98 FL (80-99); MEAN PLATELET VOLUME 9.2 FL (6.5-10.1); MONOCYTES % (AUTO) 7.2 % (1.0-10.0); NEUTROPHILS % (AUTO) 64.6 % (45.0-75.0); PLATELET COUNT 182 K/UL (150-450); RED CELL DISTRIBUTION WIDTH 16.5 % (11.6-14.8); WHITE BLOOD COUNT 4.7 K/UL (4.8-10.8)
[2017-01-30 08:07] LABS: INR 1.1 (0.9-1.1); PROTHROMBIN TIME 11.7 SEC (9.30-11.50)
[2017-01-30 08:14] LABS: ALANINE AMINOTRANSFERASE 5 U/L (3-33); ANION GAP 12 (5-15); ASPARTATE AMINO TRANSFERASE 13 U/L (5-40); CALCIUM 8.9 mg/dL (8.6-10.2); CARBON DIOXIDE 32 mEQ/L (20-30); CHLORIDE 99 mEQ/L (98-107); CREATININE 1.9 mg/dL (0.5-0.9); LACTATE DEHYDROGENASE 244 U/L (135-230); POTASSIUM 3.4 mEQ/L (3.4-4.9); SODIUM 143 mEQ/L (135-145); TOTAL PROTEIN 6.1 g/dL (6.6-8.7)
[2017-01-30 08:43] LABS: HEMOLYSIS 3; IRON 52 ug/dL (37-145); TOTAL IRON BINDING CAPACITY 291 ug/dL (250-400)
[2017-01-30 08:55] VITALS: BP 118/62
[2017-01-30] MEDS ORDERED: Fleet's Mineral Oil Enema RECTAL SCH (09:00)
[2017-01-30] MEDS: Lactulose 20gm/30ml UDC ORAL SCH ×3 (09:00→17:12)
[2017-01-30] MEDS: Furosemide 40mg tab ORAL SCH ×2 (09:05→20:37)
[2017-01-30] MEDS: Amiodarone 200mg tab ORAL SCH (09:05)
[2017-01-30] MEDS: HydrALAZINE 25mg tab ORAL SCH ×2 (09:06→20:37)
[2017-01-30] MEDS: Calcitriol 0.25mcg Cap ORAL SCH (09:06)
[2017-01-30] MEDS: Docusate 100mg cap ORAL SCH ×3 (09:07→17:10)
[2017-01-30] MEDS: Eliquis 2.5mg tablet ORAL SCH ×2 (09:08→17:11)
[2017-01-30 09:51] LABS: ERYTHROCYTE SEDIMENTATION RATE 70 MM/HR (0-42)
[2017-01-30 10:15] LABS: ANISOCYTOSIS 1+; BAND NEUTROPHILS % (MANUAL) 0 % (0-8); BASOPHILS % (MANUAL) 0 % (0-2); EOSINOPHILS % (MANUAL) 2 % (0-3); HYPOCHROMASIA 1+; LYMPHOCYTES % (MANUAL) 29 % (20-45); NEUTROPHILS % (MANUAL) 57 % (45-75); PLATELET ESTIMATE ADEQUATE; PLATELET MORPHOLOGY NORMAL; TOTAL CELLS COUNTED 100
[2017-01-30 11:30] LABS: PATH BLOOD SMEAR/OMC SENT TO PATHOLOGIST; RETICULOCYTE COUNT 0.4 % (0.0-2.0)
[2017-01-30 12:00] VITALS: BP 123/60
--- NOTE | 2017-01-30 14:52 | Pulmonology Progress Note ---
Assessment/Plan Problems: (1) Acute respiratory failure (2) Acute on chronic systolic (congestive) heart failure (3) Pacemaker (4) HTN (hypertension) (5) Cardiomyopathy (6) Diabetes mellitus (7) Wheelchair bound (8) DVT (deep venous thrombosis) Assessment/Plan improving continue diuretics cardiology managing anticoagulation check electrolytes and bnp in am pt doens't feel strong enough to go home today. all notes reviewed Subjective ROS Limited/Unobtainable: No Interval Events: improving, less short of breath Allergies: Coded Allergies: No Known Allergies (Verified , 04/05/10) Objective Last 24 Hour Vital Signs Date Time Temp Pulse Resp B/P Pulse Ox O2 Delivery O2 Flow Rate FiO2 01/30/17 12:17 123/60 01/30/17 12:02 91 01/30/17 12:00 97.5 80 18 123/60 95 Room Air 01/30/17 09:06 118/62 01/30/17 09:06 118/62 01/30/17 08:55 96.7 77 20 118/62 95 Room Air 01/30/17 07:55 76 01/30/17 04:01 75 01/30/17 04:00 97.5 81 20 123/60 98 01/29/17 23:44 74 01/29/17 21:29 72 16 Nasal Cannula 3.0 32 01/29/17 21:29 Nasal Cannula 3.0 32 01/29/17 20:52 99/58 01/29/17 20:00 97.0 87 20 99/58 94 Room Air 01/29/17 19:54 85 01/29/17 17:30 107/49 01/29/17 16:08 96.8 76 18 107/49 100 Nasal Cannula 3.0 01/29/17 16:00 79 Intake and Output 01/29/17 01/30/17 19:00 07:00 Intake Total 814.218 ml 194.792 ml Output Total 1450 ml 1450 ml Balance -635.782 ml -1255.208 ml Intake Oral 490 ml IV Total 324.218 ml 194.792 ml Output Urine Total 1450 ml 1450 ml # Bowel Movements 1 General Appearance: WD/WN HEENT: normocephalic, atraumatic Respiratory/Chest: chest wall non-tender, normal breath sounds Breasts: no masses Cardiovascular: normal rate, regular rhythm Abdomen: normal bowel sounds, soft, non tender Extremities: no clubbing Skin: no rash 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 Laboratory Tests 01/29/17 18:34: Activated Partial Thromboplast Time 94H, Free Thyroxine 0.84L, Free Triiodothyronine [Pending] 01/30/17 07:20: Activated Partial Thromboplast Time 34H, White Blood Count 4.7L, Red Blood Count 3.30L, Hemoglobin 10.1L, Hematocrit 32.2L, Mean Corpuscular Volume 98, Mean Corpuscular Hemoglobin 30.7, Mean Corpuscular Hemoglobin Concent 31.5L, Red Cell Distribution Width 16.5H, Platelet Count 182, Mean Platelet Volume 9.2 , Neutrophils (%) (Auto) 64.6, Lymphocytes (%) (Auto) 24.1, Monocytes (%) (Auto ) 7.2, Eosinophils (%) (Auto) 2.7, Basophils (%) (Auto) 1.5, Differential Total Cells Counted 100, Neutrophils % (Manual) 57, Lymphocytes % (Manual) 29, Monocytes % (Manual) 12H, Eosinophils % (Manual) 2, Basophils % (Manual) 0, Band Neutrophils 0, Platelet Estimate Adequate, Platelet Morphology Normal, Hypochromasia 1+, Anisocytosis 1+, Erythrocyte Sedimentation Rate 70H, Reticulocyte Count 0.4, Prothrombin Time 11.7H, Prothromb Time International Ratio 1.1, Sodium Level 143, Potassium Level 3.4, Chloride Level 99, Carbon Dioxide Level 32H, Anion Gap 12, Blood Urea Nitrogen 32H, Creatinine 1.9H, Estimat Glomerular Filtration Rate , Glucose Level 108H, Calcium Level 8.9, Iron Level 52, Total Iron Binding Capacity 291, Percent Iron Saturation 18, Unsaturated Iron Binding 239, Total Bilirubin 0.7, Aspartate Amino Transf (AST/ SGOT) 13, Alanine Aminotransferase (ALT/SGPT) 5, Alkaline Phosphatase 80, Lactate Dehydrogenase 244H, Pro-B-Type Natriuretic Peptide 1691H, Total Protein 6.1L, Albumin 3.1L, Globulin 3.0, Albumin/Globulin Ratio 1.0, Carcinoembryonic Antigen 6.7H, Vitamin B12 Level 295, Folate [Pending] Current Medications Medications (Trade) Dose Ordered Sig/Payal Route PRN Reason Start Time Stop Time Status Last Admin Dose Admin Acetaminophen (Tylenol) 650 mg Q4H PRN ORAL Mild Pain/Temp > 100.5 01/29/17 02:45 02/28/17 02:44 01/29/17 02:27 Acetaminophen/ Hydrocodone Bitart ([place] 5/325) 1 tab Q4H PRN ORAL Moderate Pain (Pain Scale 4-6) 01/29/17 05:45 02/05/17 05:44 Albuterol/ Ipratropium (DuoNeb 0.5-3(2.5)mg/3ml) 3 ml EVERY 4 HOURS PRN HHN Shortness of Breath 01/27/17 18:45 02/01/17 18:44 Allopurinol (Allopurinol) 300 mg DAILY ORAL 01/28/17 09:00 02/27/17 08:59 01/30/17 09:05 Amiodarone HCl (Cordarone) 200 mg DAILY ORAL 01/29/17 09:00 02/28/17 08:59 01/30/17 09:05 Apixaban (Eliquis) 10 mg Taper BID ORAL 01/30/17 09:00 03/08/17 08:59 01/30/17 09:08 Calcitriol (Rocatrol) 0.25 mcg DAILY ORAL 01/28/17 09:00 02/27/17 08:59 01/30/17 09:06 Dextrose (Dextrose 50%) STAT PRN IV Hypoglycemia 01/27/17 18:45 02/26/17 18:44 Docusate Sodium (Colace) 100 mg THREE TIMES A DAY ORAL 01/28/17 18:00 02/27/17 17:59 01/30/17 12:17 Famotidine (Pepcid I.v.) 20 mg QHS IVP 01/27/17 21:00 02/26/17 20:59 01/29/17 21:07 Furosemide (Lasix) 40 mg EVERY 12 HOURS ORAL 01/29/17 21:00 02/28/17 20:59 01/30/17 09:05 Hydralazine HCl (Apresoline) 25 mg Q12HR ORAL 01/27/17 21:00 02/26/17 20:59 01/30/17 09:06 Insulin Aspart (NovoLOG) BEFORE MEALS AND HS SUBQ 01/27/17 21:00 02/26/17 20:59 01/30/17 12:18 Isosorbide Dinitrate (Isordil) 10 mg TID ORAL 01/28/17 18:00 02/27/17 17:59 01/30/17 12:17 Lactulose (Cephulac) 30 gm THREE TIMES A DAY ORAL 01/28/17 18:00 02/27/17 17:59 01/28/17 17:55 Mineral Oil (Fleet's Mineral Oil Enema) 133 ml EVERY OTHER DAY RECTAL 01/30/17 09:00 03/01/17 08:59 01/30/17 09:03 Ondansetron HCl (Zofran) 4 mg Q6H PRN IVP Nausea & Vomiting 01/27/17 18:45 02/26/17 18:44 Polyethylene Glycol (Miralax) 17 gm BEDTIME ORAL 01/28/17 21:00 02/27/17 20:59 Polyethylene Glycol (Miralax) 17 gm DAILYPRN PRN ORAL Constipation 01/27/17 18:45 02/26/17 18:44 Sennosides (Senokot) 8.6 mg DAILY ORAL 01/28/17 14:00 02/27/17 13:59 01/30/17 09:07 Temazepam (Restoril) 15 mg HSPRN PRN ORAL Insomnia 01/27/17 18:45 02/03/17 18:44 [place] GREENE Jan 30, 2017 14:52
[2017-01-30 16:00] VITALS: BP 116/61
--- NOTE | 2017-01-30 18:59 | Cardiology Progress Note ---
Assessment/Plan Assessment/Plan 1. Congestive heart failure, acute on chronic. 2. History of permanent atrial fibrillation. 3. Sick sinus syndrome, status post permanent pacemaker implantation. 4. Coronary disease with prior history of a stent in 2005 and myocardial infarction in 2004. 5. History of left ventricular systolic dysfunction, ejection fraction 45% previously. 6. Mitral regurgitation and tricuspid regurgitation on prior occasions. 7. Pulmonary hypertension on prior occasions as well. 8. Dilated RV on prior occasions as well. 9. Nonocclusive deep venous thromboses. 10. 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 anticoagulation with heparin nto lead to any bleeding now off heparin on eleiquis family indicate she has previously had problem with coumadin prdaxa may have been underdosed now on eliquis full dose for dvt treatmnet not just afib (10 mg bid for 7 day then 5 mg bid ) echo noted diuretic po bid hydralazine adn nitrates diuretic bid switch ot po tomorrow foely out is able to urinate need Synthroid will start on 0.025 mg dialy i have explained lamont need to change th dose of eleiquis after 7 days , amiod only one and lasix need to fu with pmd in 1 week d/w pt adn family 9dtr , pt adn grandson) ok to dc tomorrow Subjective Cardiovascular: Denies: chest pain, lightheadedness, palpitations Respiratory: Denies: shortness of breath Gastrointestinal/Abdominal: Denies: abdominal pain Genitourinary: Denies: burning Objective Last 24 Hour Vital Signs Date Time Temp Pulse Resp B/P Pulse Ox O2 Delivery O2 Flow Rate FiO2 01/30/17 17:10 116/61 01/30/17 16:00 97.7 70 18 116/61 98 Room Air 01/30/17 15:04 72 01/30/17 12:17 123/60 01/30/17 12:02 91 01/30/17 12:00 97.5 80 18 123/60 95 Room Air 01/30/17 09:06 118/62 01/30/17 09:06 118/62 01/30/17 08:55 96.7 77 20 118/62 95 Room Air 01/30/17 07:55 76 01/30/17 06:43 97 Nasal Cannula 3.0 01/30/17 06:42 Nasal Cannula 3.0 01/30/17 06:41 75 18 Nasal Cannula 3.0 01/30/17 04:01 75 01/30/17 04:00 97.5 81 20 123/60 98 01/29/17 23:44 74 01/29/17 21:29 72 16 Nasal Cannula 3.0 32 01/29/17 21:29 Nasal Cannula 3.0 32 01/29/17 20:52 99/58 01/29/17 20:00 97.0 87 20 99/58 94 Room Air 01/29/17 19:54 85 General Appearance: no apparent distress, alert Neck: supple Cardiovascular: irregularly irregular Respiratory/Chest: lungs clear, normal breath sounds Abdomen: normal bowel sounds, non tender, soft Extremities: no swelling Intake and Output 01/29/17 01/30/17 19:00 07:00 Intake Total 814.218 ml 194.792 ml Output Total 1450 ml 1450 ml Balance -635.782 ml -1255.208 ml Intake Oral 490 ml IV Total 324.218 ml 194.792 ml Output Urine Total 1450 ml 1450 ml # Bowel Movements 1 Laboratory Tests Test 01/30/17 07:20 White Blood Count 4.7 K/UL (4.8-10.8) L Red Blood Count 3.30 M/UL (4.20-5.40) L Hemoglobin 10.1 G/DL (12.0-16.0) L Hematocrit 32.2 % (37.0-47.0) L Mean Corpuscular Volume 98 FL (80-99) Mean Corpuscular Hemoglobin 30.7 PG (27.0-31.0) Mean Corpuscular Hemoglobin Concent 31.5 G/DL (32.0-36.0) L Red Cell Distribution Width 16.5 % (11.6-14.8) H Platelet Count 182 K/UL (150-450) Mean Platelet Volume 9.2 FL (6.5-10.1) Neutrophils (%) (Auto) 64.6 % (45.0-75.0) Lymphocytes (%) (Auto) 24.1 % (20.0-45.0) Monocytes (%) (Auto) 7.2 % (1.0-10.0) Eosinophils (%) (Auto) 2.7 % (0.0-3.0) Basophils (%) (Auto) 1.5 % (0.0-2.0) Differential Total Cells Counted 100 Neutrophils % (Manual) 57 % (45-75) Lymphocytes % (Manual) 29 % (20-45) Monocytes % (Manual) 12 % (1-10) H Eosinophils % (Manual) 2 % (0-3) Basophils % (Manual) 0 % (0-2) Band Neutrophils 0 % (0-8) Platelet Estimate Adequate Platelet Morphology Normal Hypochromasia 1+ Anisocytosis 1+ Erythrocyte Sedimentation Rate 70 MM/HR (0-42) H Reticulocyte Count 0.4 % (0.0-2.0) Prothrombin Time 11.7 SEC (9.30-11.50) H Prothromb Time International Ratio 1.1 (0.9-1.1) Activated Partial Thromboplast Time 34 SEC (23-33) H Sodium Level 143 mEQ/L (135-145) Potassium Level 3.4 mEQ/L (3.4-4.9) Chloride Level 99 mEQ/L (98-107) Carbon Dioxide Level 32 mEQ/L (20-30) H Anion Gap 12 (5-15) Blood Urea Nitrogen 32 mg/dL (7-23) H Creatinine 1.9 mg/dL (0.5-0.9) H Estimat Glomerular Filtration Rate mL/min (>60) Glucose Level 108 mg/dL (74-106) H Calcium Level 8.9 mg/dL (8.6-10.2) Iron Level 52 ug/dL (37-145) Total Iron Binding Capacity 291 ug/dL (250-400) Percent Iron Saturation 18 % (15-50) Unsaturated Iron Binding 239 ug/dL (112-346) Total Bilirubin 0.7 mg/dL (0.0-1.2) Aspartate Amino Transf (AST/SGOT) 13 U/L (5-40) Alanine Aminotransferase (ALT/SGPT) 5 U/L (3-33) Alkaline Phosphatase 80 U/L (35-104) Lactate Dehydrogenase 244 U/L (135-230) H Pro-B-Type Natriuretic Peptide 1691 pg/mL (0-450) H Total Protein 6.1 g/dL (6.6-8.7) L Albumin 3.1 g/dL (3.5-5.2) L Globulin 3.0 g/dL Albumin/Globulin Ratio 1.0 (1.0-2.7) Carcinoembryonic Antigen 6.7 ng/mL H Vitamin B12 Level 295 pg/mL (211-946) Folate Pending PEDRO COOPER Jan 30, 2017 18:59
[2017-01-30 20:18] VITALS: BP 128/66
[2017-01-30] MEDS: Famotidine 20 MG/ 2ML VIAL IVP SCH (20:37)
[2017-01-30] MEDS: Miralax 17gm pkt ORAL SCH (20:51)
[2017-01-31] VITALS: BP 123/65
[2017-01-31 04:00] VITALS: BP 139/64
[2017-01-31] MEDS: NovoLOG Insulin Flexpen SUBQ SCH ×2 (06:00→11:44)
[2017-01-31] MEDS ORDERED: Levothyroxine 25mcg tab ORAL SCH (06:30)
[2017-01-31 08:00] VITALS: BP 125/59
[2017-01-31] MEDS: Furosemide 40mg tab ORAL SCH (08:43)
[2017-01-31] MEDS: Amiodarone 200mg tab ORAL SCH (08:43)
[2017-01-31] MEDS: Docusate 100mg cap ORAL SCH ×2 (08:43→12:46)
[2017-01-31] MEDS: Calcitriol 0.25mcg Cap ORAL SCH (08:43)
[2017-01-31] MEDS: Eliquis 2.5mg tablet ORAL SCH (08:44)
[2017-01-31] MEDS: Lactulose 20gm/30ml UDC ORAL SCH ×2 (08:44→12:34)
[2017-01-31] MEDS: HydrALAZINE 25mg tab ORAL SCH (08:44)
--- NOTE | 2017-01-31 11:16 | Pulmonology Progress Note ---
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 obesity PLAN OF CARE tele diuresis , monitor I/O renal parameters, lytes pro BNP trending down CXR better O2 HHN prn respiratory status improved significantly antitussive prn cardio follows rate controlled with Amiodarone ( once daily, was erroneously taking twice daily ) anticoagulation with Eliquis 10 mg po bid x 1 week, then 5 mg po bid - per cardio medical maanegemtn of SHF with Hydralazine, Isordil and diuretic venous Duplex with acute nonocclusive thrombus popliteal vein LLE, on Eliquis ECHO with EF 40-45% and RVSP of 51 c/w moderate pomonary HTN likely has RIA sleep study as outpatient recommended new onset of hypothyroidism, likely due to Amiodarone started in low dose Synthroid, check thyroid panel in 1 month HH at baseline, no trend down, iron panel stable BS management with SS of insulin, at home continue management as before with short and long acting insulin GI prophylaxis fup with PMD and cardio case discussed and evaluated by supervising physician Subjective Allergies: Coded Allergies: No Known Allergies (Verified , 04/05/10) Subjective feeling better denies chest pain, SOB Objective Last 24 Hour Vital Signs Date Time Temp Pulse Resp B/P Pulse Ox O2 Delivery O2 Flow Rate FiO2 01/31/17 08:44 125/59 01/31/17 08:43 125/59 01/31/17 08:00 71 01/31/17 08:00 97.5 71 19 125/59 94 Room Air 01/31/17 07:44 Room Air 01/31/17 07:43 95 Room Air 01/31/17 07:42 77 20 Room Air 01/31/17 04:00 72 01/31/17 04:00 97.0 72 18 139/64 99 Nasal Cannula 01/31/17 00:00 97.7 82 18 123/65 96 Room Air 01/31/17 00:00 74 01/30/17 20:37 128/66 01/30/17 20:18 97.3 76 18 128/66 95 Room Air 01/30/17 20:00 78 01/30/17 19:35 96 Room Air 01/30/17 19:35 Room Air 01/30/17 19:32 72 18 Room Air 21 01/30/17 17:10 116/61 01/30/17 16:00 97.7 70 18 116/61 98 Room Air 01/30/17 15:04 72 01/30/17 12:17 123/60 01/30/17 12:02 91 01/30/17 12:00 97.5 80 18 123/60 95 Room Air Intake and Output 01/30/17 01/31/17 19:00 07:00 Intake Total 120 ml Balance 120 ml Intake Oral 120 ml # Voids 3 General Appearance: no acute distress, other - morbidly obese female HEENT: normocephalic, atraumatic, anicteric, mucous membranes moist Respiratory/Chest: lungs clear - moderate air entry Cardiovascular: normal peripheral pulses, normal rate - distant heart sounds , irregularly irregular, other - V pacing with underlying A fib Abdomen: normal bowel sounds, soft, non tender - obese Extremities: other - +1 edema BLE Neurologic/Psychiatric: abnormal gait, alert, responsive, normal mood/affect Musculoskeletal: atrophy - BLE Current Medications Medications (Trade) Dose Ordered Sig/Payal Route PRN Reason Start Time Stop Time Status Last Admin Dose Admin Acetaminophen (Tylenol) 650 mg Q4H PRN ORAL Mild Pain/Temp > 100.5 01/29/17 02:45 02/28/17 02:44 01/29/17 02:27 Acetaminophen/ Hydrocodone Bitart ([place]wall 5/325) 1 tab Q4H PRN ORAL Moderate Pain (Pain Scale 4-6) 01/29/17 05:45 02/05/17 05:44 Albuterol/ Ipratropium (DuoNeb 0.5-3(2.5)mg/3ml) 3 ml EVERY 4 HOURS PRN HHN Shortness of Breath 01/27/17 18:45 02/01/17 18:44 Allopurinol (Allopurinol) 300 mg DAILY ORAL 01/28/17 09:00 02/27/17 08:59 01/31/17 08:43 Amiodarone HCl (Cordarone) 200 mg DAILY ORAL 01/29/17 09:00 02/28/17 08:59 01/31/17 08:43 Apixaban (Eliquis) 10 mg Taper BID ORAL 01/30/17 09:00 03/08/17 08:59 01/31/17 08:44 Calcitriol (Rocatrol) 0.25 mcg DAILY ORAL 01/28/17 09:00 02/27/17 08:59 01/31/17 08:43 Dextrose (Dextrose 50%) STAT PRN IV Hypoglycemia 01/27/17 18:45 02/26/17 18:44 Docusate Sodium (Colace) 100 mg THREE TIMES A DAY ORAL 01/28/17 18:00 02/27/17 17:59 01/31/17 08:43 Famotidine (Pepcid I.v.) 20 mg QHS IVP 01/27/17 21:00 02/26/17 20:59 01/30/17 20:37 Furosemide (Lasix) 40 mg EVERY 12 HOURS ORAL 01/29/17 21:00 02/28/17 20:59 01/31/17 08:43 Hydralazine HCl (Apresoline) 25 mg Q12HR ORAL 01/27/17 21:00 02/26/17 20:59 01/31/17 08:44 Insulin Aspart (NovoLOG) BEFORE MEALS AND HS SUBQ 01/27/17 21:00 02/26/17 20:59 01/31/17 06:00 Isosorbide Dinitrate (Isordil) 10 mg TID ORAL 01/28/17 18:00 02/27/17 17:59 01/31/17 08:43 Lactulose (Cephulac) 30 gm THREE TIMES A DAY ORAL 01/28/17 18:00 02/27/17 17:59 01/28/17 17:55 Levothyroxine Sodium (Synthroid) 25 mcg DAILY@0630 ORAL 01/31/17 06:30 03/02/17 06:29 01/31/17 05:56 Mineral Oil (Fleet's Mineral Oil Enema) 133 ml EVERY OTHER DAY RECTAL 01/30/17 09:00 03/01/17 08:59 01/30/17 09:03 Ondansetron HCl (Zofran) 4 mg Q6H PRN IVP Nausea & Vomiting 01/27/17 18:45 02/26/17 18:44 Polyethylene Glycol (Miralax) 17 gm BEDTIME ORAL 01/28/17 21:00 02/27/17 20:59 Polyethylene Glycol (Miralax) 17 gm DAILYPRN PRN ORAL Constipation 01/27/17 18:45 02/26/17 18:44 Sennosides (Senokot) 8.6 mg DAILY ORAL 01/28/17 14:00 02/27/17 13:59 01/31/17 08:43 Temazepam (Restoril) 15 mg HSPRN PRN ORAL Insomnia 01/27/17 18:45 02/03/17 18:44 Mansoor ([facility])Caro NP Jan 31, 2017 11:15
[2017-01-31 11:37] VITALS: BP 113/57
[2017-01-31 12:47] VITALS: BP 113/57
[2017-01-31] MEDS ORDERED: ELIQUIS2.5 MG ORAL (12:48)
[2017-01-31] MEDS ORDERED: PACERONE200 MG ORAL (12:48)
[2017-01-31] MEDS ORDERED: LEVOTHYROXINE25 MCG ORAL (12:48)
[2017-01-31] MEDS ORDERED: ISOSORBIDE DINI10 MG ORAL (12:48)
[2017-01-31] MEDS ORDERED: ELIQUIS5 MG PO (12:49)
--- NOTE | 2017-02-03 15:35 | Discharge Summary ---
Discharge Summary Hospital Course Date of Admission Jan 27, 2017 at 17:38 Date of Discharge Jan 31, 2017 at 15:15 Admitting Diagnosis CHF Exacerbation HPI Michelle Holcomb is a 81 year old female who was admitted on Jan 27, 2017 at 17:38 for Congestive Heart Failure Exacerbation Hospital Course dc summary #[id number] Discharge Medications New Medications: Apixaban (Eliquis) 5 Mg Tablet 5 MG PO EVERY 12 HOURS, #60 TAB startb 5 mg po bid after 10 mg po bid x 1 week done Amiodarone Hcl* (Pacerone*) 200 Mg Tablet 200 MG ORAL DAILY, #30 TAB Apixaban (Eliquis) 2.5 Mg Tablet 10 MG ORAL BID, #14 TAB Isosorbide Dinitrate* (Isordil*) 10 Mg Tablet 10 MG ORAL TID, #90 TAB Levothyroxine Sodium* (Levothyroxine Sodium*) 25 Mcg Tablet 25 MCG ORAL DAILY@0630, #30 TAB Take in the morning on an empty stomach, at least 30 minutes before food. Continued Medications: Allopurinol* (Allopurinol*) 300 Mg Tablet 300 MG ORAL DAILY, TAB Calcitriol (Calcitriol) 0.25 Mcg Capsule 0.25 MCG PO DAILY, CAP Esomeprazole Magnesium (Nexium) 40 Mg Capsule.dr 40 MG ORAL DAILY, CAP Furosemide* (Lasix*) 40 Mg Tablet 40 MG ORAL TWICE A DAY, TAB 0 Refills Hydralazine Hcl* (Hydralazine Hcl*) 25 Mg Tablet 25 MG ORAL BID, TAB 0 Refills Insulin Aspart (Novolog Flexpen) 100 Unit/1 Ml Insuln.pen 12 SQ ACBREAKFAST Insulin Aspart (Novolog Flexpen) 100 Unit/1 Ml Insuln.pen 8 SQ BEFORE LUNCH Insulin Aspart (Novolog Flexpen) 100 Unit/1 Ml Insuln.pen 12 SQ BEDTIME Insulin Glargine (Lantus) 100 Unit/1 Ml Insuln.pen 18 SUBQ BEDTIME, #1 EA 0 Refills Vitamin D (Vitamin D3) 400 Unit Tablet 400 UNITS ORAL BID, TAB Discontinued Medications: Amiodarone Hcl* (Amiodarone Hcl*) 400 Mg Tablet 200 MG ORAL EVERY 12 HOURS, TAB Dabigatran Etexilate Mesylate* (Pradaxa*) 150 Mg Capsule 75 MG ORAL DAILY, CAP Discharge Condition Upon Discharge: stable Discharge Disposition Patient was discharged to Home with Home Health(06) Discharge Diagnoses: Mansoor ([facility])Caro NP Feb 03, 2017 15:35
--- NOTE | 2017-02-04 01:30 | Discharge Summary 2 SIG ---
DATE OF ADMISSION: 01/27/2017 DATE OF DISCHARGE: 01/31/2017 REASON FOR ADMISSION: 81-year-old female with a history of CHF, atrial fibrillation, diabetes, AR, coronary artery disease, arrhythmia, and GERD , presented to emergency department due to shortness of breath for one day. The patient tried to contact her primary care physician, but was unable to do it. She denied fever or chills. She denied cough or congestion. She denied chest pain. She denied abdominal pain. She denied dysuria, hematuria, or flank pain. The patient was placed on 3 liters oxygen via nasal canula with pulse oximetry of 100%. Blood pressure was 151/93. The patient had no leukocytosis. No fever. Pro-BNP was 4101. Hemoglobin -10.5 and hematocrit -34.2. Troponin was negative. BUN -28, creatinine -1.5. EKG revealed atrial fibrillation with a rate of 80. No acute ischemic changes Chest x-ray revealed cardiomegaly and interstitial congestion as well as a pacemaker. The patient was admitted for further management. ADMITTING DIAGNOSES: 1. Acute hypoxemic respiratory failure. 2. Acute on chronic systolic heart failure. 3. Pacemaker. 4. Hypertension. 5. Cardiomyopathy. 6. Diabetes. 7. Wheelchair bound. HOSPITAL STAY: The patient admitted to telemetry floor. The patient started on diuretic. Intake and output, renal parameters, and electrolytes were closely monitored. Supplemental oxygen and pulmonary toilet provided as needed. Echocardiogram revealed ejection fraction of 45% to 50%, severe left atrial enlargement, moderate right atrial enlargement, and right ventricular systolic pressure of 51 consistent with moderate pulmonary hypertension. [employer]ius Corner Machine Operator followed the patient. Per business rules developer, the patient had acute on chronic systolic heart failure. Cardio concurred with IV diuresis. Diuretics switched to oral only prior to discharge. Venous duplex of bilateral lower extremities revealed acute nonocclusive thrombus in the left lower extremity popliteal vein. The patient was initially on a heparin drip. Per business rules developer, the patient did not tolerate heparin drip, which was subsequently discontinued. The patient was started on Eliquis for atrial fibrillation, which is a permanent for this patient as well as for the acute DVT. Cardio recommended full dose for 7 days of 10 mg b.i.d. and then switched to 5 mg b.i.d. That was explained to the family. Medical management of congestive heart failure was continued. Blood sugar was managed with sliding scale of insulin. The patient noted to have elevated TSH and low free T4. New onset of hypothyroidism for this patient. The patient was started on low dose of Synthroid. Check thyroid panel in one month. Hypothyroidism likely secondary to amiodarone. Apparently, the patient erroneously was taking amiodarone b.i.d. instead of daily. That was explained to the patient by Cardiology and need for Amiodarone only daily. . PT and OT were working with the patient. Follow up chest x-ray revealed some improvement in the right lung opacification, likely decreasing atelectasis , stable right pleural effusion. Pro BNP was trending down. The patient was stable for discharge. Follow up with her primary medical doctor in one week. Prescription provided for new medications. DISCHARGE DIAGNOSES: 1. Acute hypoxemic respiratory failure, resolved. 2. Acute on chronic systolic heart failure. 3. Cardiomyopathy. 4. Hypertension. 5. Sick sinus syndrome, status post pacemaker placement. 6. Diabetes mellitus. 7. Moderate pulmonary hypertension. 8. Nonocclusive acute deep venous thrombosis, popliteal vein, left lower extremity. 9. Atrial fibrillation (permanent). 10. Coronary artery disease with history of stent (2005) and myocardial infarction (2004). 11. Hypothyroidism (new onset), likely secondary to amiodarone. 12. Anemia. 13. Chronic renal insufficiency. 14. Obesity. DISCHARGE MEDICATIONS: See medication reconciliation list. DISCHARGE INSTRUCTIONS: The patient was discharged home with home health services. Follow up with primary medical doctor in one week. Leslee Geiger M.D. Caro Casedaly N.PRosendo DR: SHIV JOB#: [id number] CC: JONG
== END 2017-01-31 15:15 | disposition home health service (06) | DRG 291 ==
LOC: EDBD 16:15 → EMR 16:40 → 2E 17:38 → EDBEDREQ 18:33 → 2E 01-29 20:14
DX: I13.0 Hypertensive heart and chronic kidney disease with heart failure and stage 1 through stage 4 chronic kidney disease, or unspecified chronic kidney disease (principal); I50.23 Acute on chronic systolic (congestive) heart failure; J96.01 Acute respiratory failure with hypoxia; I82.432 Acute embolism and thrombosis of left popliteal vein; Z68.41 Body mass index [BMI] 40.0-44.9, adult; I27.2 Other secondary pulmonary hypertension; E11.22 Type 2 diabetes mellitus with diabetic chronic kidney disease; I49.9 Cardiac arrhythmia, unspecified; I25.5 Ischemic cardiomyopathy; I25.10 Atherosclerotic heart disease of native coronary artery without angina pectoris; I08.1 Rheumatic disorders of both mitral and tricuspid valves; E66.01 Morbid (severe) obesity due to excess calories; N18.9 Chronic kidney disease, unspecified; I25.2 Old myocardial infarction; E03.2 Hypothyroidism due to medicaments and other exogenous substances; D64.9 Anemia, unspecified; Z99.3 Dependence on wheelchair; Z95.0 Presence of cardiac pacemaker; T46.2X5A Adverse effect of other antidysrhythmic drugs, initial encounter; Y92.89 Other specified places as the place of occurrence of the external cause
CPT/HCPCS: 36415; 71010; 80048; 80053; 80069; 81003; 82378; 82550; 82553; 82607; 82746; 82962; 83540; 83550; 83615; 83880; 84439; 84443; 84481; 84484; 85007; 85025; 85044; 85060; 85610; 85651; 85730; 93005; 93306; 93970; 94664; 94760; J1815